=== PATIENT | female | born 1995 | race Caucasian/White ===

== ENCOUNTER 2019-08-13 00:07 | Emergency (ER) | payer OTHER ==
[2019-08-13 01:58] LABS: APPEARANCE,URINE CLEAR; BILIRUBIN,URINE NEGATIVE (NEGATIVE); COLOR,URINE YELLOW; GLUCOSE, URINE NEGATIVE (NEGATIVE); KETONES,URINE NEGATIVE (NEGATIVE); LEUKOCYTE ESTERASE,URINE NEGATIVE (NEGATIVE); NITRITE,URINE NEGATIVE (NEGATIVE); PROTEIN,URINE NEGATIVE (NEGATIVE); URINE SPECIFIC GRAVITY 1.025; UROBILINOGEN,URINE NEGATIVE mg/dL (<2.0)
[2019-08-13 01:59] LABS: ABSOLUTE BASOPHILS # (AUTO) 0.1 10^3/uL (0.0-0.2); ABSOLUTE EOSINOPHILS # (AUTO) 0.1 10^3/uL (0.0-0.6); ABSOLUTE LYMPHOCYTES (AUTO) 2.3 10^3/uL (0.5-4.7); ABSOLUTE MONOCYTES (AUTO) 0.8 10^3/uL (0.1-1.4); ABSOLUTE NEUT (AUTO) 13.6 10^3/uL (1.7-8.2); BASOPHILS % (AUTO) 0.4 % (0-2); EOSINOPHILS % (AUTO) 0.3 % (0-6); HEMATOCRIT 42.1 % (36.0-47.0); HEMOGLOBIN 14.3 g/dL (12.0-15.5); LYMPHOCYTES % (AUTO) 13.5 % (13-45); MEAN CORPUSCULAR HEMOGLOBIN 29.1 pg (27.0-33.4); MEAN CORPUSCULAR VOLUME 86 fl (80-97); PLATELET COUNT 308 10^3/uL (150-450); RED BLOOD COUNT 4.92 10^6/uL (3.72-5.28); RED CELL DISTRIBUTION WIDTH 13.5 % (11.5-14.0); SEGMENTED NEUTROPHILS % (AUTO) 80.8 % (42-78); TOTAL CELLS COUNTED % (AUTO) 100 %; WHITE BLOOD COUNT 16.8 10^3/uL (4.0-10.5)
[2019-08-13 02:04] LABS: ALBUMIN 4.7 g/dL (3.5-5.0); ALKALINE PHOSPHATASE 67 U/L (38-126); ANION GAP 14 (5-19); ASPARTATE AMINO TRANSFERASE 18 U/L (14-36); BILIRUBIN,DIRECT 0.1 mg/dL (0.0-0.4); BILIRUBIN,TOTAL 0.4 mg/dL (0.2-1.3); BLOOD UREA NITROGEN 12 mg/dL (7-20); CALCIUM 9.5 mg/dL (8.4-10.2); CARBON DIOXIDE 23 mmol/L (22-30); CHLORIDE 106 mmol/L (98-107); GLUCOSE 89 mg/dL (75-110); POTASSIUM 3.9 mmol/L (3.6-5.0); TOTAL PROTEIN 7.7 g/dL (6.3-8.2)
[2019-08-13] MEDS ORDERED: ONDANSETRON HCL INJ/PF 4 MG/2 ML SDV IV ONE (03:56)
[2019-08-13] MEDS ORDERED: NORMAL SALINE 1000 ML 1,000 ML IV ONE (03:57)
--- NOTE | 2019-08-13 03:59 | ER Document Report ---
ED General - General Chief Complaint: Abdominal Pain Stated Complaint: VOMITING/ABDOMINAL PAIN Time Seen by Provider: 08/13/19 03:45 - HPI Notes: Patient is a 23-year-old female who presents emergency department for evaluation of abdominal pain, vomiting, diarrhea. Patient states that early in the hours of Sunday morning, she woke with abdominal pain. It was periumbilical in nature, dull. She states she got up and had multiple episodes of diarrhea. She then had one episode of nonbloody, nonbilious emesis. She is feeling moderately improved. She went back to sleep. Throughout the day on Sunday, as well as Sunday, she states she felt rundown, but otherwise felt normal. She denied any pain. She was able to tolerate food without difficulty. On Sunday evening she started feeling ill again, she had sudden onset right lower quadrant pain, sharp and stabbing in nature, with again vomiting and diarrhea associated with it. The pain in her right lower quadrant has persisted. It is not colicky in nature. She continues to feel nauseated, so she presents to the ED for further evaluation. - Related Data Allergies/Adverse Reactions: nickel Allergy (Verified 08/13/19 00:50) Penicillins Allergy (Verified 08/13/19 00:50) Home Medications: None Past Medical History - General Information source: Patient - Social History Smoking Status: Never Smoker Family History: Reviewed & Not Pertinent Patient has suicidal ideation: No Patient has homicidal ideation: No - Medical History Medical History: Negative Past Surgical History: Reports: Hx Section Review of Systems - Review of Systems Constitutional: No symptoms reported EENT: No symptoms reported Cardiovascular: No symptoms reported Respiratory: No symptoms reported Gastrointestinal: See HPI Genitourinary: No symptoms reported Female Genitourinary: No symptoms reported Musculoskeletal: No symptoms reported Skin: No symptoms reported Neurological/Psychological: No symptoms reported Physical Exam - Vital signs Vitals: Temp Pulse Resp BP Pulse Ox 98.5 F 109 H 18 159/84 H 97 08/13/19 00:50 08/13/19 00:50 12 00:50 08/13/19 00:50 08/13/19 00:50 - Notes Notes: Is a very pleasant 23-year-old female who appears her stated age in no acute distress. Vital signs reviewed, please refer to chart. Head is normocephalic, atraumatic. Pupils equal round, reactive to light. Neck is supple without meningismus. Heart is regular rate and rhythm. Lungs are clear to auscultation bilaterally. Abdomen is soft, moderate right lower quadrant tenderness with some voluntary guarding, no rebound, normoactive bowel sounds throughout. Extremities without cyanosis, clubbing. Posterior calves are nontender. Perip heral pulses are equal. Skin is warm and dry. Patient is awake, alert, neurological exam is nonfocal. Course - Re-evaluation Re-evalutation: 08/13/19 03:59 Patient presents emergency department for evaluation. She is abdominal pain that is localized at this point to the right lower quadrant, with associated vomiting and diarrhea. She does have a significant leukocytosis. She continues to feel nauseated. She is given a liter of fluids, Zofran. At this point, given her exam and leukocytosis, I am concerned enough about the possibility of appendicitis. CT scan of the abdomen and pelvis is ordered. Patient is kept n.p.o., we will continue to monitor. 08/13/19 05:[address] scan is unremarkable for anything acute other than some trace free fluid in the pelvis. She is feeling improved. Her skin was definitely negative for appendicitis. At this point, patient is feeling improved enough to go home. She is told if her symptoms worsen, or she develops new or concerning symptoms of any sort, she needs to return immediately to the emergency department for evaluation. She voiced understanding to this and was discharged. - Vital Signs Vital signs: Temp Pulse Resp BP Pulse Ox 98.2 F 75 17 107/50 L 100 08/13/19 05:46 08/13/19 05:46 08/13/19 05:46 08/13/19 05:46 08/13/19 05:46 - Laboratory Result Diagrams: 08/13/19 01:08 08/13/19 01:08 Laboratory results interpreted by me: 08/13/19 01:08 WBC 16.8 H Absolute Neuts (auto) 13.6 H Seg Neutrophils % 80.8 H - Diagnostic Test Radiology reviewed: Image reviewed, Reports reviewed Radiology results interpreted by me: 08/13/19 05:30 Abdomen/Pelvis CT 08/13/19 03:55 IMPRESSION: 1. Trace amount of nonspecific pelvic free fluid which may be physiologic in nature. 2. No CT evidence to suggest acute appendicitis, acute gallbladder pathology or urinary tract obstruction. Discharge - Discharge Clinical Impression: Right lower quadrant abdominal pain Nausea and vomiting Qualifiers: Vomiting Intractability: non-intractable Diarrhea Qualifiers: Diarrhea type: presumed infectious Qualified Code(s): R19.7 - Diarrhea, unspecified Condition: Stable Disposition: HOME, SELF-CARE Instructions: Abdominal Pain ([facility]), Diarrhea, Nonspecific ([facility]), Vomiting ([facility]) Additional Instructions: Rest. Clear liquids, advance slowly to bland diet. Zofran as needed for significant nausea, Tylenol as needed for pain. Follow-up with your primary care provider in 1 to 2 days. If you develop increased pain, intractable vomiting, or any other new or concerning symptoms, please return immediately to the emergency department for reevaluation.
--- NOTE | 2019-08-13 05:14 | RADIOLOGY REPORT (SQ) ---
EXAM: CT abdomen and pelvis with IV contrast CLINICAL DATA: 23-year-old female with right lower quadrant abdominal pain TECHNICAL DATA: Axial CT imaging of the abdomen and pelvis was performed following the administration of intravenous contrast.. Sagittal and coronal reconstructed images were then performed. The CT study is performed according to ALARA (as low as reasonably achievable) or ALARA/IMAGE GENTLY, with automatic adjustment of mA and/or kV according to patient size. Performed on: 08/13/2019 at 4:37 AM. Comparison: None FINDINGS: Lung bases: Lung bases are clear. Liver:The liver is normal in size and configuration. No focal hepatic abnormalities are identified. Liver attenuation is within normal limits. Spleen:The spleen is normal is size, configuration and attenuation. Gallbladder and bile duct: The gallbladder is well distended and unremarkable. There is no biliary ductal dilatation. Pancreas: The pancreas is grossly normal in size and configuration. Adrenal Glands:The adrenal glands are normal in size and configuration. Kidneys:The kidneys are normal in size and configuration. There is no evidence of hydronephrosis. There is no evidence of nephrolithiasis. No definite solid or cystic renal mass lesions are identified. Stomach:The stomach is grossly normal. There is no definite hiatal hernia. Bowel:The bowel gas pattern is non specific and non obstructive. Appendix: The appendix is normal. Free air:There is no evidence of free air. Free fluid: There is a trace amount of nonspecific pelvic free fluid which may be physiologic in nature. Vasculature: The aorta is normal in caliber and contour. The inferior vena cava is grossly unremarkable. Lymphadenopathy: No pathologic lymphadenopathy is identified. Bladder: The bladder is partially distended and smooth in contour. Reproductive: The uterus is grossly within normal limits. The bilateral ovaries are within normal limits. Bones: No acute osseous abnormalities are identified. Soft tissues: No focal soft tissue abnormalities are identified. IMPRESSION: 1. Trace amount of nonspecific pelvic free fluid which may be physiologic in nature. 2. No CT evidence to suggest acute appendicitis, acute gallbladder pathology or urinary tract obstruction.
[2019-08-13] MEDS ORDERED: ONDANSETRON ODT 4 MG TAB (6 TAB/ER DISP) PO PRN (05:31)
[2019-08-13 05:48] VITALS: BP 107/50
== END 2019-08-13 05:56 | disposition home or self-care (01) ==
LOC: ER 00:07
DX: R10.31 Right lower quadrant pain (principal); R19.7 Diarrhea, unspecified; R11.2 Nausea with vomiting, unspecified; Z88.0 Allergy status to penicillin
CPT/HCPCS: 36415; 83690; 85025; 81025; 80053; 81001; 74177; J2405; J7030; 96361; 96374; 99284

== ENCOUNTER 2019-09-12 14:05 | Emergency (ER) | payer OTHER ==
[2019-09-12 14:13] VITALS: BP 144/88
--- NOTE | 2019-09-12 14:44 | ER Document Report ---
ED Medical Screen (RME) - General Chief Complaint: Shoulder Pain Stated Complaint: LEFT SHOULDER PAIN Time Seen by Provider: 09/12/19 14:41 - HPI Notes: 09/12/19 14:43 Patient is a 24-year-old female no significant past medical history presents complaining of left shoulder pain for the past year without precipitating event or injury. Patient states that she does have soreness to the left trapezius muscle as well. She has not noticed any bruising or swelling otherwise. Patient does question if she is or not and would like a test done. No fever, chest pain, abdominal pain. I have treated and performed a rapid initial assessment of this patient. A comprehensive ED assessment and evaluation of the patient, analysis of test results and completion of medical decision making process will be conducted by additional ED providers. PHYSICAL EXAMINATION: GENERAL: Well-appearing, well-nourished and in no acute distress. A&Ox4. Answers questions appropriately. - Related Data Allergies/Adverse Reactions: nickel Allergy (Verified 09/12/19 14:37) Penicillins Allergy (Verified 09/12/19 14:37) Past Medical History - Social History Frequency of alcohol use: Rare Drug Abuse: None Past Surgical History: Reports: Hx Section Physical Exam - Vital signs Vitals: Pulse Resp BP Pulse Ox 80 18 144/88 H 100 09/12/19 14:12 09/12/19 14:12 09/12/19 14:12 09/12/19 14:12 Course - Vital Signs Vital signs: Temp Pulse Resp BP Pulse Ox 80 18 144/88 H 100 09/12/19 14:12 09/12/19 14:12 09/12/19 14:12 09/12/19 14:12
[2019-09-12 15:06] LABS: APPEARANCE,URINE CLEAR; BILIRUBIN,URINE NEGATIVE (NEGATIVE); COLOR,URINE YELLOW; GLUCOSE, URINE NEGATIVE (NEGATIVE); KETONES,URINE NEGATIVE (NEGATIVE); LEUKOCYTE ESTERASE,URINE NEGATIVE (NEGATIVE); NITRITE,URINE NEGATIVE (NEGATIVE); PROTEIN,URINE NEGATIVE (NEGATIVE); URINE SPECIFIC GRAVITY 1.026; UROBILINOGEN,URINE NEGATIVE mg/dL (<2.0)
--- NOTE | 2019-09-12 15:19 | RADIOLOGY REPORT (SQ) ---
EXAM DESCRIPTION: SHOULDER LEFT 2 OR MORE VIEWS COMPLETED DATE/TIME: 09/12/2019 2:03 pm REASON FOR STUDY: left shoulder pain COMPARISON: None. NUMBER OF VIEWS: Three views. TECHNIQUE: Internal rotation, external rotation, and Y view images acquired of the left shoulder. LIMITATIONS: None. FINDINGS: MINERALIZATION: Normal. BONES: No acute fracture. No worrisome bone lesions. JOINTS: No dislocation. VISUALIZED LUNGS AND RIBS: No pneumothorax. No rib fracture. SOFT TISSUES: No radiopaque foreign body. OTHER: No other significant finding. IMPRESSION: No radiographic abnormality of the left shoulder. TECHNICAL DOCUMENTATION: JOB ID: [id number] [employer]- All Rights Reserved Reading location - IP/workstation name: [email or web address]
--- NOTE | 2019-09-12 15:32 | ER Document Report ---
HPI - HPI Time Seen by Provider: 09/12/19 14:41 Pain Level: 4 Notes: Patient is a 24-year-old female no significant past medical history presents complaining of left shoulder pain for the past year without precipitating event or injury. Patient states that she does have soreness to the left trapezius muscle as well. She has not noticed any bruising or swelling otherwise. Patient does question if she is or not and would like a test done. Denies any headache, fever, head injury, neck pain, URI, sore throat, chest pain, palpitations, syncope, cough, shortness of breath, wheeze, dyspnea, abdominal pain, nausea/vomiting/diarrhea, urinary retention, dysuria, hematuria, loss of control of bowel or bladder, numbness/tingling, saddle anesthesia, muscle paralysis/weakness, or rash. - ROS Systems Reviewed and Negative: Yes All other systems reviewed and negative - REPRODUCTIVE LMP: 08/17/2019 Reproductive: DENIES: : Past Medical History - Social History Smoking Status: Never Smoker Frequency of alcohol use: Rare Drug Abuse: None Family History: Reviewed & Not Pertinent Patient has suicidal ideation: No Patient has homicidal ideation: No Past Surgical History: Reports: Hx Section Vertical Provider Document - CONSTITUTIONAL Agree With Documented VS: Yes Notes: PHYSICAL EXAMINATION: GENERAL: Well-appearing, well-nourished and in no acute distress. NECK: Normal range of motion, supple without lymphadenopathy. Non-tender. Spurling negative. No rigidity/meningismus. LUNGS: Breath sounds clear to auscultation bilaterally and equal. No wheezes rales or rhonchi. HEART: Regular rate and rhythm without murmurs, rubs, gallops. Musculoskeletal: Lt shoulder: FROM to passive/active. Strength 4+/5 due to pain. + impingement test. Neg speed test. No crepitus. No erythema or warmth. No deformity or ecchymosis. RC intact 5+/5 strength. + tenderness left trapezius mm with spasming noted. Extremities: No cyanosis, clubbing, or edema b/l. Peripheral pulses 2+. Capillary refill less than 3 seconds. NEUROLOGICAL: Normal speech, normal gait. Normal sensory, motor exams PSYCH: Normal mood, normal affect. SKIN: Warm, Dry, normal turgor, no rashes or lesions noted. Course - Re-evaluation Re-evalutation: 09/12/19 15:29 Patient is an afebrile, well-hydrated, 53-year-old female who presents to the ED with left shoulder pain which I suspect to be inflammatory. Vitals are acceptable without any significant tachycardia, tachypnea, or hypoxia. PE is otherwise unremarkable for any neurovascular compromise, obvious tendon/ligament rupture, obvious fracture/dislocation, septic joint. X-ray was unremarkable for any acute pathology. UA/hcg neg. Patient is nontoxic-appearing. No other labs or imaging warranted at this time based on H&P. Conservative measures otherwise for symptoms. Recheck with your PCM in 3-5 days. Consider consult orthopedics. Return to the ED with any worsening/concerning symptoms otherwise as reviewed in discharge. Patient is in agreement. - Vital Signs Vital signs: Temp Pulse Resp BP Pulse Ox 80 18 144/88 H 100 09/12/19 14:12 09/12/19 14:12 09/12/19 14:12 09/12/19 14:12 Discharge - Discharge Clinical Impression: Left shoulder pain Qualifiers: Chronicity: acute Qualified Code(s): M25.512 - Pain in left shoulder Condition: Stable Disposition: HOME, SELF-CARE Additional Instructions: Rest, Ice, Compression, Elevation Tylenol/ibuprofen as needed Light stretches daily Strength exercises as able Moist heat and massage may help F/u with your PCP in 3-5 days for a recheck Consider consult(s) with Orthopedics/physical therapy for ongoing/worsening symptoms Return to the ED with any worsening symptoms and/or development of fever, headache, chest pain, palpitations, syncope, shortness of breath, trouble breathing, abdominal pain, n/v/d, muscle weakness/paralysis, numbness/tingling, swelling, redness, or other worsening symptoms that are concerning to you. Forms: Elevated Blood Pressure Referrals: [facility] [Provider Group] - Follow up as needed
== END 2019-09-12 15:40 | disposition home or self-care (01) ==
LOC: ER 14:05
DX: M25.512 Pain in left shoulder (principal)
CPT/HCPCS: 81001; 81025; 99283

== ENCOUNTER 2020-06-28 01:44 | Emergency (ER) | payer OTHER ==
--- NOTE | 2020-06-28 03:18 | ER Document Report ---
ED General - General Chief Complaint: Chest Tightness Stated Complaint: CHEST PAIN Primary Care Provider: CARLOS DE LEON DO [Primary Care Provider] - Follow up as needed Notes: 24-year-old female with no significant past medical history presents with approximately 2 days of nonradiating aching left-sided and midline chest pain and soreness exacerbated by taking a deep breath and pressing on chest associated with shortness of breath was gradual in onset and has been constant since. Patient otherwise has been feeling sore over her whole body and has felt tired and had low appetite. Patient has no known COVID-19 contacts but has been "out and about ". Patient has Liletta IUD in place. Patient denies any DVT/PE/hypercoagulability history in self or family, recent travel/trauma/surgery/immobilization, cancer history, exogenous estrogen, lower extremity edema or pain, sick contacts, smoking history, alcohol or drug use, dizziness, fainting, trauma, rash, immune compromise - Related Data Allergies/Adverse Reactions: nickel Allergy (Verified 09/12/19 14:37) Penicillins Allergy (Verified 09/12/19 14:37) Past Medical History - General Information source: Patient - Social History Smoking Status: Never Smoker Family History: Reviewed & Not Pertinent Past Surgical History: Reports: Hx Section Review of Systems - Review of Systems Notes: REVIEW OF SYSTEMS: CONSTITUTIONAL : Denies fever, chills, or sweats. EENT: Denies recent cold/sinus symptoms, denies throat pain CARDIOVASCULAR: + chest pain, -CRISTO RESPIRATORY: Denies cough, +shortness of breath. GASTROINTESTINAL: Denies abdominal pain, nausea/vomiting. GENITOURINARY: Denies difficulty urinating, painful urination. FEMALE GENITOURINARY: Denies abnormal vaginal bleeding, vaginal discharge. MUSCULOSKELETAL: Denies neck pain, back pain. SKIN: Denies rash or skin lesions. HEMATOLOGIC : Denies easy bruising or bleeding. LYMPHATIC: Denies swollen, enlarged glands. NEUROLOGICAL: +headache, denies change in gait. PSYCHIATRIC: Denies anxiety or stress or depression. Physical Exam - Vital signs Vitals: Temp Pulse Resp BP Pulse Ox 98.1 F 108 H 18 149/98 H 98 06/28/20 02:08 06/28/20 02:08 06/28/20 02:08 06/28/20 02:08 06/28/20 02:08 - Notes Notes: PHYSICAL EXAMINATION: GENERAL: Well-appearing, well-nourished and in no acute distress. HEAD: Atraumatic, normocephalic. EYES: Pupils equal round and appropriate constriction, sclera anicteric, conjunctiva are normal. ENT: nares patent, moist mucous membranes. NECK: Normal range of motion, supple without lymphadenopathy LUNGS: Breath sounds clear to auscultation bilaterally and equal. No wheezes rales or rhonchi. HEART: Regular rate and rhythm without murmurs rubs or gallops, normal chest inspection, mild tenderness over palpation of upper left chest wall ABDOMEN: Soft, nontender, no guarding, no masses, no CVAT EXTREMITIES: Normal range of motion, no pitting or edema. No cyanosis. No calf tenderness NEUROLOGICAL: Awake, alert, conversing appropriately, moves all extremities spontaneously. PSYCH: Normal mood, normal affect. SKIN: Warm, Dry, normal turgor, no rashes or lesions noted. Course - Re-evaluation Re-evalutation: 06/28/20 03:59 Childhood asthma but no signs of asthma on lung exam. pleuritic chest pain and shortness of breath and patient with no PE risk factors, associated with viral symptoms including mild intermittent global headache, myalgia, fatigue, loss of appetite. Given the patient was mildly tachycardic will rule out with D-dimer which is appropriate in patients case patient she is low risk and will rule score. Will rule out COVID-19, flu, her carditis, myocarditis. EKG, troponin, chest x-ray, COVID-19 swab, flu swab, Toradol, D-dimer, reassess. Likely DC wi th PCP follow-up and return precautions. The patient was evaluated during the global COVID-19 pandemic and that diagnosis was suspected/considered upon their initial presentation. Their evaluation, treatment and testing was consistent with current guidelines for patients who present with complaints or symptoms that may be related to COVID-19. 06/28/20 04:01 06/28/20 07:24 CTA negative for PE and no emergent findings. Other lab work normal, EKG and troponin negative, and low pretest probability for cardiac etiology. Patient refused Covid and flu swabs because she did not want to be a PUI at her job, instructed her to quarantine anyway. Patient ready for discharge with PCP follow-up. Gave return to ED precautions which she demonstrated understanding of. - Vital Signs Vital signs: Temp Pulse Resp BP Pulse Ox 97.9 F 84 18 100/63 98 06/28/20 06:25 06/28/20 06:25 06/28/20 06:25 06/28/20 06:25 06/28/20 06:25 - Laboratory Result Diagrams: 06/28/20 02:48 06/28/20 02:48 Laboratory results interpreted by me: 06/28/20 04:12 D-Dimer 0.66 H - EKG Interpretation by Me Additional EKG results interpreted by me: 06/28/20 03:18 Heart rate 97, sinus rhythm, no significant ST elevations or depressions, no significant T wave abnormalities, QTc 417 Discharge - Discharge Clinical Impression: Viral syndrome Chest pain Qualifiers: Chest pain type: unspecified Qualified Code(s): R07.9 - Chest pain, unspecified Disposition: HOME, SELF-CARE Additional Instructions: Chest Pain of Unclear Cause The exact cause of your chest pain isn't clear. Fortunately, there is no evidence of a dangerous medical condition. Further testing may be required to find the source of the pain. Most often, we find that this pain is coming from the chest wall -- the muscles or rib joints in the chest. But chest pain can come from the lung and lung lining, the esophagus, the heart valves or heart lining, and even the sto mach or gallbladder. Rest. Eat lightly until the pain is gone. We may prescribe medicine for pain and inflammation. You should call the physician immediately if the pain radiates to the shoulder, jaw or arms; if you start to run a fever or develop a cough; or if you develop shortness of breath, or other new or alarming symptoms. Patient was provided with discharge information including: As a person under investigation for Covid 19, the [place] department of Health and Human Services, division of public health advises you to adhere to the following guidance until your test results are reported to you. If your test result is positive, you will receive additional information from your provider and your local health department at that time. Remain at home until you are cleared by the health provider or public health authorities. Keep a log of visitors to your home, notify any visitors to your home of your isolation status. If you plan to move to a new address or leave the county, notify the local health department in your County. Call your doctor or seek care if you have an urgent medical need. Before seeking medical care, call ahead to get instructions from the provider before arriving at the medical office clinic or hospital. Notify them that you are being tested for the virus that causes Covid 19 so that arrangements can be made, as necessary, to prevent transmission to others in the healthcare setting. Next, notify the local health department in your county. If a medical emergency arises and you need to call 911, inform the first responders that you are being tested for the virus that causes Covid 19. Next, notify the local health department in your county. Follow-up with your primary doctor within 1 week. If you have any worsening symptoms return to the emergency department immediately. Referrals: CARLOS DE LEON, [Primary Care Provider] - Follow up as needed
[2020-06-28 03:23] LABS: ABSOLUTE BASOPHILS # (AUTO) 0.1 10^3/uL (0.0-0.2); ABSOLUTE LYMPHOCYTES (AUTO) 1.4 10^3/uL (0.5-4.7); ABSOLUTE MONOCYTES (AUTO) 0.8 10^3/uL (0.1-1.4); ABSOLUTE NEUT (AUTO) 7.9 10^3/uL (1.7-8.2); BASOPHILS % (AUTO) 0.6 % (0-2); EOSINOPHILS % (AUTO) 0.4 % (0-6); HEMATOCRIT 38.2 % (36.0-47.0); HEMOGLOBIN 13.4 g/dL (12.0-15.5); LYMPHOCYTES % (AUTO) 13.9 % (13-45); MEAN CORPUSCULAR HEMOGLOBIN 29.8 pg (27.0-33.4); MEAN CORPUSCULAR HGB CONC 35.1 g/dL (32.0-36.0); MEAN CORPUSCULAR VOLUME 85 fl (80-97); PLATELET COUNT 295 10^3/uL (150-450); RED BLOOD COUNT 4.49 10^6/uL (3.72-5.28); RED CELL DISTRIBUTION WIDTH 13.7 % (11.5-14.0); SEGMENTED NEUTROPHILS % (AUTO) 77.1 % (42-78); TOTAL CELLS COUNTED % (AUTO) 100 %; WHITE BLOOD COUNT 10.3 10^3/uL (4.0-10.5)
--- NOTE | 2020-06-28 03:34 | RADIOLOGY REPORT (SQ) ---
EXAM DESCRIPTION: XR CHEST 2 VIEWS COMPLETED DATE/TME: 06/28/2020 00:00 CLINICAL HISTORY: 24 years, Female, CP COMPARISON: None. NUMBER OF VIEWS: Two TECHNIQUE: Two views of the chest LIMITATIONS: None. FINDINGS: The lungs are clear. Heart is normal in size. No pneumothorax or pleural effusion. Bones are unremarkable. IMPRESSION: No acute cardiopulmonary abnormality. copyright 2010 [employer]- All Rights Reserved
[2020-06-28 03:50] LABS: ALBUMIN 4.6 g/dL (3.5-5.0); ALKALINE PHOSPHATASE 98 U/L (38-126); ANION GAP 10 (5-19); ASPARTATE AMINO TRANSFERASE 23 U/L (14-36); BILIRUBIN,DIRECT 0.2 mg/dL (0.0-0.4); BILIRUBIN,TOTAL 0.7 mg/dL (0.2-1.3); BLOOD UREA NITROGEN 13 mg/dL (7-20); CALCIUM 9.6 mg/dL (8.4-10.2); CARBON DIOXIDE 25 mmol/L (22-30); CHLORIDE 102 mmol/L (98-107); CREATINE KINASE 99 U/L (30-135); GLUCOSE 97 mg/dL (75-110); POTASSIUM 4.3 mmol/L (3.6-5.0); TOTAL PROTEIN 7.4 g/dL (6.3-8.2)
[2020-06-28] MEDS ORDERED: KETOROLAC TROMETHAMINE INJ/PF 30 MG/1 ML SDV IV ONE (03:53)
[2020-06-28 04:01] LABS: CREATINE KINASE MB 0.72 ng/mL (<4.55)
[2020-06-28 04:02] LABS: TROPONIN I < 0.012 ng/mL
--- NOTE | 2020-06-28 05:57 | RADIOLOGY REPORT (SQ) ---
COMPLETED DATE/TME: 06/28/2020 05:15 EXAM: CT chest angiogram with contrast. INDICATION: Chest pain. TECHNIQUE: Contiguous axial CT images of the chest. Intravenous contrast: Present. Protocol: Pulmonary embolus (PE) protocol angiogram. Reformats: MIPs and MPRs created and utilized. DLP 517 mGy-cm. This exam was performed according to our departmental dose-optimization program, which includes automated exposure control, adjustment of the mA and/or kV according to patient size and/or use of iterative reconstruction technique. Note: LV=left ventricle. RV=right ventricle. COMPARISON: None. FINDINGS: Upper abdomen: Partially imaged. Thoracic aorta: Unremarkable. Heart: No right atrial thrombus. RV/LV ratio: Within normal limits. Pulmonary arteries: Technical: Adequate opacification to the level of the segmental vessels. Pulmonary embolus: No low-density filling defect to suggest acute PE. Overall embolic burden: None. Mediastinum: No pathologic sized middle mediastinal lymphadenopathy. Tracheobronchial tree: Unremarkable. Lungs: Lobar consolidation: Negative. Pleural effusion: Negative. Pneumothorax: Negative. Other: Negative. Bones: Unremarkable. IMPRESSION: 1. No CT evidence of acute PE. 2. No acute cardiopulmonary abnormality.
--- NOTE | 2020-06-28 07:18 | EKG REPORT ---
SEVERITY:- NORMAL ECG - SINUS RHYTHM : Confirmed by: Chuy Pappas MD 28-Jun-2020 07:17:52
[2020-06-28 07:46] VITALS: BP 111/71
== END 2020-06-28 07:46 | disposition home or self-care (01) ==
LOC: ER 01:44
DX: B34.9 Viral infection, unspecified (principal); R07.9 Chest pain, unspecified; R06.02 Shortness of breath; R63.0 Anorexia; Z88.0 Allergy status to penicillin; Z88.8 Allergy status to other drugs, medicaments and biological substances
CPT/HCPCS: 93005; 99285; 96374; 36415; 82553; 82550; 84703; 85025; 80053; 84484; 85379; 83880; 71046; 71275; 93010; J1885